=== PATIENT | male | born 1975 | race Caucasian/White ===

== ENCOUNTER → 2018-04-24 | Outpatient (CLI) | payer BC ==
--- NOTE | 2018-04-25 16:25 | CT ---
EXAMINATION TYPE: CT abdomen pelvis wo/w con DATE OF EXAM: 04/24/2018 COMPARISON: None HISTORY: Lower abdominal pain x [address] DLP: 2363 mGycm Automated exposure control for dose reduction was used. TECHNIQUE: Helical acquisition of images was performed from the lung bases through the pelvis. CONTRAST: Performed with Oral Contrast and without and with IV Contrast, patient injected with 100 mL of Isovue 300. FINDINGS: LUNG BASES: No significant abnormality is appreciated. LIVER/GB: Liver shows low attenuation possibly due to hepatic steatosis. Gallbladder is normal.. PANCREAS: No significant abnormality is seen. SPLEEN: Calcified granuloma noted within the spleen. ADRENALS: No significant abnormality is seen. KIDNEYS: Nonobstructive punctate calcification present at the lower pole of the right kidney. FREE AIR: No free air is visualized. RETROPERITONEAL ADENOPATHY: None visualized REPRODUCTIVE ORGANS: No significant abnormality is seen URINARY BLADDER: No significant abnormality is seen. PELVIC ADENOPATHY: None visualized. OSSEOUS STRUCTURES: No significant abnormality is seen. BOWEL: Long segment areas of small bowel narrowing Are noted in the midabdomen, axial images 42 through 36 and axial 67e, there is no evident bowel obst ruction however. The appendix is normal. Sigmoid colon shows wall thickening which is indeterminate, this could be due to lack of distention or muscular hypertrophy, difficult to exclude mucosal mass, c olitis, diverticular change also present. OTHER: Small umbilical hernia contains fat. IMPRESSION: DIFFICULT TO EXCLUDE BOWEL STRICTURE ON THE BASIS OF THIS EXAM, UPPER GI WITH SMALL BOWEL FOLLOW-THRO UGH MAY BE OF BENEFIT. Findings in the sigmoid colon as described, diverticulosis. Old granulomatous disease. Possible hepatic steatosis.
== END | disposition home or self-care (01) ==
LOC: RADCTMAIN 16:21
PROVIDERS: ATTEND Family Medicine
DX: K57.30 Diverticulosis of large intestine without perforation or abscess without bleeding (principal)
CPT/HCPCS: 74178; Q9967

== ENCOUNTER → 2018-06-01 | Outpatient (CLI) | payer BC ==
--- NOTE | 2018-06-01 10:33 | FL ---
Small bowel follow-through HISTORY: Abdominal pain and distention Patient was given barium and serial exams performed over the abdomen. 27 seconds fluoroscopy time, 7 images obtained. There is no obstruction to flow. No fixation of bowel loops noted, there is no fistula formation. No evident bowel distention. Bowel fold pattern is normal. Appendix is not visualized. Terminal ileum sh ows a normal position and appearance. IMPRESSION: No significant abnormality is evident.
== END ==
LOC: RADFLMAIN 07:34
PROVIDERS: ATTEND Surgery
DX: K56.609 Unspecified intestinal obstruction, unspecified as to partial versus complete obstruction (principal)
CPT/HCPCS: 74250

== ENCOUNTER → 2018-09-04 | Day surgery (SDC) | payer BC ==
[~2018-09-04] MED LIST: GLUCAGON 1 MG/ML VIAL IM STA
[2018-09-04 08:53] VITALS: BP 123/85; PULSE 79; RESP 18; TEMP 97.7
--- NOTE | 2018-09-07 11:10 | MR ---
EXAMINATION TYPE: MR Enterography DATE OF EXAM: 09/04/2018 COMPARISON: CT abdomen and pelvis April 24, 2018. Small bowel follow-through June 01, 2018. HISTORY: Abdominal pain CONTRAST: Standard multiplanar, multisequence imaging of the abdomen is performed without and with IV contrast, patient is injected with 10 mL intravenous Gadavist gadolinium contrast. Oral Volumen and Water was given as per enterography protocol. FINDINGS: BOWEL: Stomach shows satisfactory distention without suspicious wall thickening or eccentric mural en hancement. Duodenal sweep shows satisfactory distention without suspicious eccentric wall thickening or enhancement. Jejunal loops in the left abdomen show some areas of nondistention. There is no suspi cious mucosal hyperenhancement or eccentric wall thickening identified. Right-sided ileal loops show less than optimal distention without suspicious eccentric wall thickening or mucosal hyperenhancement . Area of concern on prior CT of a short segment narrowing in the right upper quadrant to midabdomen is redemonstrated without suspicious acute enhancement. Short segment stricture is suspected. No sign ificant proximal dilatation to suggest obstruction related to this is identified. Terminal ileum show similar poor distention without suspicious wall thickening or enhancement. Visualized portion of the colon shows poor distention of the proximal to mid transverse colon without suspicious mural enhancement or eccentric wall thickening. Some poor distention of the mid sigmoid c olon is also identified. OTHER: Visualized lung bases are clear. Visualized portion of liver, both adrenal glands, spleen, and pancreas are unremarkable. Gallbladder is contracted. There is subcentimeter simple appearing cyst u pper pole level right kidney axial image 39. No hydronephrosis is evident bilaterally. No concerning abdominal fluid collection is seen. No suspicious abdominal adenopathy is noted. Visualized osseous s tructures are intact. IMPRESSION: Short segment stricture proximal ileal loops right upper quadrant confirmed. No suspicious proximal d ilatation to suggest significant obstruction. No active small or large bowel disease currently.
== END ==
LOC: RADMRIMAIN 08:12
PROVIDERS: ATTEND Internal Medicine Gastroenterology
DX: K56.699 Other intestinal obstruction unspecified as to partial versus complete obstruction (principal)
CPT/HCPCS: 96372; 72197; 74183; J1610; A9585

== ENCOUNTER 2018-12-08 06:22 | Emergency (ER) | payer BC ==
[2018-12-08 06:37] VITALS: TEMP 97.6
[2018-12-08] MEDS ORDERED: ONDANSETRON 4 MG/2 ML VIAL IVP STA (07:06)
[2018-12-08] MEDS ORDERED: SODIUM CHLORIDE 0.9% 1,000 ML IV STA (07:06)
[2018-12-08] MEDS ORDERED: KETOROLAC 30 MG/ML 1 ML VIAL IVP STA ×2 (07:06→08:09)
--- NOTE | 2018-12-08 07:09 | ED ---
Abdominal Pain HPI - General Chief Complaint: Abdominal Pain Stated Complaint: Kidney stone Time Seen by Provider: 12/08/18 07:00 Source: patient, RN notes reviewed Mode of arrival: ambulatory Limitations: no limitations - History of Present Illness Initial Comments: This is a 43-year-old male with a history of kidney stones in the past who states he had the onset around 5:30 AM this morning of severe sharp right-sided flank pain this seems to radiate around to his right mid abdomen. She had nausea with it he states it's very severe 10/10 somewhat to his previous kidney stone pain. No vomiting he does feel somewhat lightheaded. Nothing makes pain better nothing seems to make it worse. He's had prior to this no fevers chills nausea vomiting sweats abdominal pain dysuria hematuria or trouble with bowel movements. MD Complaint: flank pain - Related Data Home Medications Medication Instructions Recorded Confirmed Dicyclomine [Bentyl] 20 mg PO BID 09/04/18 12/08/18 Pantoprazole Sodium [Protonix] 40 mg PO BID 09/04/18 12/08/18 Cinnamon Bark [Cinnamon] 500 mg PO DAILY 12/08/18 12/08/18 Turmeric Root Extract [Turmeric] 500 mg PO DAILY 12/08/18 12/08/18 Previous Rx's Medication Instructions Recorded Hydrocodone/Acetaminophen [Critz 1 each PO Q6HR PRN #20 tab 12/08/18 5-325] Tamsulosin [Flomax] 0.4 mg PO DAILY #7 cap 12/08/18 Allergies Allergy/AdvReac Type Severity Reaction Status Date / Time No Known Allergies Allergy Verified 12/08/18 08:03 Review of Systems ROS Statement: Those systems with pertinent positive or pertinent negative responses have been documented in the HPI. ROS Other: All systems not noted in ROS Statement are negative. Past Medical History Past Medical History: No Reported History History of Any Multi-Drug Resistant Organisms: None Reported Past Surgical History: Orthopedic Surgery Past Psychological History: No Psychological Hx Reported Smoking Status: Former smoker Past Alcohol Use History: Occasional Past Drug Use History: None Reported General Exam - General Exam Comments Initial Comments: This is a well-developed well-nourished awake alert oriented times 3 male Limitations: no limitations General appearance: alert, anxious, in distress Head exam: Present: atraumatic, normocephalic, normal inspection Eye exam: Present: normal appearance, PERRL, EOMI. Absent: scleral icterus, conjunctival injection, periorbital swelling ENT exam: Present: normal exam, mucous membranes moist Neck exam: Present: normal inspection. Absent: tenderness, meningismus, lymphadenopathy Respiratory exam: Present: normal lung sounds bilaterally. Absent: respiratory distress, wheezes, rales, rhonchi, stridor Cardiovascular Exam: Present: regular rate, normal rhythm, normal heart sounds. Absent: systolic murmur, diastolic murmur, rubs, gallop, clicks GI/Abdominal exam: Present: soft, tenderness (Mild right flank tenderness palpation), normal bowel sounds. Absent: distended, guarding, rebound, rigid Rectal exam: Present: deferred Extremities exam: Present: normal inspection, full ROM, normal capillary refill. Absent: tenderness, pedal edema, joint swelling, calf tenderness Back exam: Present: normal inspection, CVA tenderness (R). Absent: CVA tenderness (L), paraspinal tenderness, vertebral tenderness, rash noted Neurological exam: Present: alert, oriented X3, CN II-XII intact Psychiatric exam: Present: normal affect, anxious Skin exam: Present: warm, dry, intact, pallor. Absent: rash Course Vital Signs 12/08/18 06:35 Temperature 97.6 F Pulse Rate 62 Respiratory 20 Rate Blood Pressure 136/91 O2 Sat by Pulse 96 Oximetry Medical Decision Making - Medical Decision Making Patient is finally get improvement he will be discharged with pain medication and Flomax I did discuss this with the patient and his - Lab Data Result diagrams: 12/08/18 07:05 12/08/18 07:05 Lab Results 12/08/18 12/08/18 12/08/18 Range/Units 06:40 07:05 07:05 WBC 9.5 (3.8-10.6) k/uL RBC 5.05 (4.30-5.90) m/uL Hgb 14.5 (13.0-17.5) gm/dL Hct 42.3 (39.0-53.0) % MCV 83.7 (80.0-100.0) fL MCH 28.8 (25.0-35.0) pg MCHC 34.4 (31.0-37.0) g/dL RDW 13.3 (11.5-15.5) % Plt Count 317 (150-450) k/uL Neutrophils % 59 % Lymphocytes % 29 % Monocytes % 7 % Eosinophils % 2 % Basophils % 0 % Neutrophils # 5.6 (1.3-7.7) k/uL Lymphocytes # 2.7 (1.0-4.8) k/uL Monocytes # 0.7 (0-1.0) k/uL Eosinophils # 0.1 (0-0.7) k/uL Basophils # 0.0 (0-0.2) k/uL Sodium 141 (137-145) mmol/L Potassium 4.2 (3.5-5.1) mmol/L Chloride 105 (98-107) mmol/L Carbon Dioxide 26 (22-30) mmol/L Anion Gap 10 mmol/L BUN 14 (9-20) mg/dL Creatinine 1.03 (0.66-1.25) mg/dL Est GFR (CKD-EPI)AfAm >90 (>60 ml/min/1.73 sqM) Est GFR (CKD-EPI)NonAf 88 (>60 ml/min/1.73 sqM) Glucose 118 H (74-99) mg/dL Calcium 9.7 (8.4-10.2) mg/dL Total Bilirubin 0.7 (0.2-1.3) mg/dL AST 29 (17-59) U/L ALT 68 (21-72) U/L Alkaline Phosphatase 66 (38-126) U/L Total Protein 7.5 (6.3-8.2) g/dL Albumin 4.5 (3.5-5.0) g/dL Amylase 40 (30-110) U/L Lipase 112 (23-300) U/L Urine Color Yellow Urine Appearance Clear (Clear) Urine pH 5.5 (5.0-8.0) Ur Specific [place] 1.028 (1.001-1.035) Urine Protein Trace H (Negative) Urine Glucose (UA) Negative (Negative) Urine Ketones Negative (Negative) Urine Blood Moderate H (Negative) Urine Nitrite Negative (Negative) Urine Bilirubin Negative (Negative) Urine Urobilinogen <2.0 (<2.0) mg/dL Ur Leukocyte Esterase Negative (Negative) Urine RBC 119 H (0-5) /hpf Urine WBC 1 (0-5) /hpf Ur Squamous Epith Cells <1 (0-4) /hpf Urine Mucus Moderate H (None) /hpf - Radiology Data Radiology results: report reviewed (I did review the imaging and report no acute findings), image reviewed Disposition Clinical Impression: Kidney stone on right side, Renal colic on right side, Hematuria Disposition: HOME SELF-CARE Condition: Good Instructions (If sedation given, give patient instructions): Abdominal Pain (ED), Kidney Stones (ED), Renal Colic (ED), Flank Pain (ED) Prescriptions: Tamsulosin [Flomax] 0.4 mg PO DAILY #7 cap Hydrocodone/Acetaminophen [Critz 5-325] 1 each PO Q6HR PRN #20 tab PRN Reason: Pain Is patient prescribed a controlled substance at d/c from ED?: Yes When asked, does pt state using other controlled substances?: No If prescribed controlled substance>3 days was MAPS reviewed?: Prescribed <3 Days If opioid is for acute pain is fill amount 7 days or less?: No If Rx opioid, was Start Talking consent form obtained?: Yes Referrals: Cristi Zayas DO [Primary Care Provider] - 1-2 days
[2018-12-08 07:18] LABS: Appearance,Urine Clear (Clear); Bilirubin,Urine Negative (Negative); Blood,Urine Moderate (Negative); Color,Urine Yellow; Glucose,Urine (UA) Negative (Negative); Ketones,Urine Negative (Negative); Leukocyte Esterase,Urine Negative (Negative); Mucus,Urine Moderate /hpf; Nitrite,Urine Negative (Negative); PH, Urine 5.5 (5.0-8.0); Protein,Urine Trace (Negative); RBC,Urine 119 /hpf (0-5); Specific Gravity,Urine 1.028 (1.001-1.035); Squamous Epithelial Cell,Urine <1 /hpf (0-4); Urobilinogen,Urine <2.0 mg/dL (<2.0); WBC,Urine 1 /hpf (0-5)
[2018-12-08 07:29] LABS: Basophils % (A) 0 %; Eosinophils # (A) 0.1 k/uL (0-0.7); Eosinophils % (A) 2 %; HCT 42.3 % (39.0-53.0); HGB 14.5 gm/dL (13.0-17.5); Lymphocytes # (A) 2.7 k/uL (1.0-4.8); Lymphocytes % (A) 29 %; MCH 28.8 pg (25.0-35.0); MCHC 34.4 g/dL (31.0-37.0); MCV 83.7 fL (80.0-100.0); Mean Platelet Volume 6.4; Monocytes # (A) 0.7 k/uL (0-1.0); Monocytes % (A) 7 %; Neutrophils # (A) 5.6 k/uL (1.3-7.7); Neutrophils % (A) 59 %; Platelet Count 317 k/uL (150-450); RBC 5.05 m/uL (4.30-5.90); RDW 13.3 % (11.5-15.5); WBC 9.5 k/uL (3.8-10.6)
[2018-12-08 07:38] LABS: ALT 68 U/L (21-72); AST 29 U/L (17-59); Albumin 4.5 g/dL (3.5-5.0); Alkaline Phosphatase 66 U/L (38-126); Amylase 40 U/L (30-110); Anion Gap 10 mmol/L; Blood Urea Nitrogen 14 mg/dL (9-20); Calcium 9.7 mg/dL (8.4-10.2); Carbon Dioxide 26 mmol/L (22-30); Chloride 105 mmol/L (98-107); Glucose 118 mg/dL (74-99); Lipase 112 U/L (23-300); Potassium 4.2 mmol/L (3.5-5.1); Sodium 141 mmol/L (137-145); Total Bilirubin 0.7 mg/dL (0.2-1.3); Total Protein 7.5 g/dL (6.3-8.2)
[2018-12-08] MEDS ORDERED: fentaNYL (PF) 50 MCG/ML 2 ML AMP IV STA (07:48)
[2018-12-08] MEDS ORDERED: TAMSULOSIN 0.4 MG CAP.ER.24H PO STA (08:09)
[2018-12-08] MEDS ORDERED: HYDROmorphone 1 MG/ML 1 ML SYRINGE IVP STA (08:10)
--- NOTE | 2018-12-08 08:26 | XR ---
EXAMINATION TYPE: XR KUB DATE OF EXAM: 12/08/2018 8:15 AM CLINICAL HISTORY: Right flank pain. History of nephrolithiasis. TECHNIQUE: Single upright image of the abdomen is obtained. COMPARISON: 06/01/2018. FINDINGS: Scattered gas is seen in nondilated small bowel loops. Gas and fecal material is seen in no ndilated colon. There is no visceromegaly, gross evidence of pneumoperitoneum, or abnormal calcificat ion appreciated. The lung bases are clear and the osseous structures are intact. IMPRESSION: No radiopaque calculi. Mild right hemicolonic fecal burden. Nonobstructive bowel gas augie wolf.
[2018-12-08 10:08] VITALS: BP 109/84; PULSE 77; RESP 18
== END 2018-12-08 10:10 | disposition home or self-care (01) ==
LOC: EC 06:22
DX: N20.0 Calculus of kidney (principal); R42 Dizziness and giddiness; R23.1 Pallor; Z87.891 Personal history of nicotine dependence; Z79.899 Other long term (current) drug therapy
CPT/HCPCS: 36415; 80053; 82150; 83690; 85025; 81001; 74018; 99284; 96374; 96375 ×3; 96376; 96361 ×2; J2405; J3010; J1885; J1170

== ENCOUNTER → 2019-07-23 | Outpatient (CLI) | payer BC ==
--- NOTE | 2019-07-24 12:17 | XR ---
Sacrum and coccyx HISTORY: Sacrococcygeal pain 3 views of the sacrum and coccyx Bone mineralization and alignment are maintained. No fracture or dislocation. Suspect spina bifida oc culta S1. IMPRESSION: No abnormality evident. MRI or bone scan may be of increased sensitivity.
== END | disposition home or self-care (01) ==
LOC: RADXRMAIN 15:31
PROVIDERS: ATTEND Family Medicine
DX: M53.3 Sacrococcygeal disorders, not elsewhere classified (principal)
CPT/HCPCS: 72220

== ENCOUNTER → 2020-11-14 | Outpatient (CLI) | payer BC ==
--- NOTE | 2020-11-14 14:33 | CT ---
EXAMINATION TYPE: CT abdomen pelvis w con DATE OF EXAM: 11/14/2020 COMPARISON: 04/24/2018 HISTORY: 45-year-old male [id number], diverticulitis, Left side abdominal pain TECHNIQUE: Contiguous axial scanning of the abdomen and pelvis following administration of 100 ml Iso suhas 300 IV contrast. Delayed images through the kidneys and coronal/sagittal reconstructions perform ed. CT DLP: 1089.8 mGycm Automated exposure control for dose reduction was used. FINDINGS: Heart normal size without pericardial effusion. Lung bases clear without pleural effusion. Liver borderline in size at 17.2 cm. Slightly low attenuation suggests mild fatty infiltration. John l venous system is patent. No biliary ductal dilatation. Gallbladder, adrenal glands, left kidney, spleen, and pancreas appear within normal limits. Stable 9 mm cortical hypodensity upper pole right kidney too small for accurate CT characterization c ompatible with a small cyst. No dilated small bowel, free fluid, or free air. No mesenteric or retroperitoneal lymphadenopathy. Oral contrast progressed into the splenic flecture. The previously described area of small bowel stricture in the right upper quadrant is not as well dem onstrated on the present exam. Mild circumferential wall thickening along the sigmoid colon likely due to nondistention. Bladder is urine distended. Prostate gland measures 4.1 cm wide. No abnormal fluid collection in the pelvis or pelvic lymphadenopathy. Bones: Mild degenerative change at the hips. A few scattered sclerotic foci compatible with bone rajeev nds such as in the medial anterior left iliac bone and posterior left acetabulum. IMPRESSION: 1. MILD CIRCUMFERENTIAL WALL THICKENING OF THE SIGMOID COLON LIKELY DUE TO NONDISTENTION. CORRELATE T O EXCLUDE A NONSPECIFIC MILD COLITIS. 2. THE PREVIOUSLY DESCRIBED AREA OF SMALL BOWEL STRICTURE IN THE RIGHT UPPER QUADRANT IS NOT WELL DEMONSTRATED ON THE PRESENT EXAM.
== END ==
LOC: RADCTMAIN 11:49
PROVIDERS: ATTEND Family Medicine
DX: K56.699 Other intestinal obstruction unspecified as to partial versus complete obstruction (principal)
CPT/HCPCS: 74177; Q9967

== ENCOUNTER → 2020-12-04 | Outpatient (CLI) | payer BC | END | disposition home or self-care (01) | LOC: LABPAT 10:28 | PROVIDERS: ATTEND Surgery | DX: Z20.822 Contact with and (suspected) exposure to COVID-19 (principal) | CPT/HCPCS: U0003; C9803; U0005 ==

== ENCOUNTER 2020-12-08 09:31 | Day surgery (SDC) | payer BC ==
[2020-12-06 11:26] VITALS: BMI 29.9
[~2020-12-08 09:31] MED LIST changes: -GLUCAGON 1 MG/ML VIAL IM STA; +LACTATED RINGERS 1,000 ML IV SCH
[2020-12-08] MEDS ORDERED: LIDOCAINE 1% (10MG/ML) FOR IV START SQ ONE (09:50)
[2020-12-08 09:54] VITALS: TEMP 97
[2020-12-08] MEDS ORDERED: PROPOFOL 10 MG/ML 20 ML VIAL IV ONE (10:08)
--- NOTE | 2020-12-08 10:25 | P.GSHP ---
History of Present Illness H&P Date: 12/08/20 45-year-old male presents today for screening colonoscopy. He has had recent episodes of diverticulitis. He denies any recent blood in stool. He states he has had a colonoscopy 10 years ago. He has no additional complaints at this time. - Review of Systems All systems: negative Past Medical History Past Medical History: GERD/Reflux Additional Past Medical History / Comment(s): abdominal pain History of Any Multi-Drug Resistant Organisms: MRSA Date of last positivie culture/infection: 2010 MDRO Source:: rt knee Past Surgical History: Orthopedic Surgery Additional Past Surgical History / Comment(s): ankle procedure Past Anesthesia/Blood Transfusion Reactions: No Reported Reaction Smoking Status: Never smoker - Past Family History Mother Family Medical History: No Reported History Father Family Medical History: Cancer Medications and Allergies Home Medications Medication Instructions Recorded Confirmed Type Pantoprazole Sodium [Protonix] 40 mg PO BID 09/04/18 12/08/20 History Allergies Allergy/AdvReac Type Severity Reaction Status Date / Time No Known Allergies Allergy Verified 12/08/20 09:48 Surgical - Exam Osteopathic Statement: *. No significant issues noted on an osteopathic struc tural exam other than those noted in the History and Physical/Consult. Vital Signs Temp Pulse Resp BP Pulse Ox 97.0 F L 108 H 17 122/82 98 12/08/20 09:53 12/08/20 09:53 12/08/20 09:53 12/08/20 09:53 12/08/20 09:53 - General well nourished, no distress - Neck trachea midline - Respiratory normal respiratory effort - Abdomen Abdomen: soft, non tender Assessment and Plan Plan: 45-year-old male presents for a screening colonoscopy. Risks, benefits and alternatives were provided to the patient. He did provide consent prior to attending the endoscopy suite. Further recommendations to be made after procedure.
[2020-12-08 10:27] VITALS: RESP 16
--- NOTE | 2020-12-08 10:28 | P.PCN ---
Date of Procedure: 12/08/20 Preoperative Diagnosis: Screening for colon cancer History of diverticulitis Postoperative Diagnosis: Diverticulosis Procedure(s) Performed: Colonoscopy Anesthesia: MAC Surgeon: Lukas Morejon Pathology: none sent Condition: stable Disposition: same day Indications for Procedure: 45-year-old male presents for screening colonoscopy. Last colonoscopy was 10 years ago. He has had recent episodes of diverticulitis. Denies blood in his stool. Risks, benefits and alternatives were provided to the patient. He did provide consent prior to attending the endoscopy suite. Operative Findings: Diverticulosis Description of Procedure: The patient was brought to the endoscopy suite and placed in left lateral decubitus position and adequate sedation was achieved using conscious sedation. A digital rectal exam was performed and internal hemorrhoids were palpated. An endoscope was then placed in the rectum and advanced to the cecum as identified by landmarks including the appendiceal orifice and the ileocecal valve. The prep was good. The colonoscope was then slowly withdrawn, examining for any mucosal abnormalities. The cecum, ascending, transverse, descending and sigmoid colon were visualized adequately. There were no large neoplastic lesions noted throughout the colon. There were no polyps noted throughout the colon. Small amount of diverticulosis was noted in the sigmoid colon. Retroflexion was performed in the rectum and internal hemorrhoids were visible. Excess air was removed, the colonoscope was withdrawn and the procedure terminated. The patient was then transferred to the recovery unit in stable condition. Repeat c olonoscopy should be performed in 7 years.
[2020-12-08 10:40] VITALS: BP 108/74; PULSE 81
== END 2020-12-08 11:20 | disposition home or self-care (01) ==
LOC: ORWHC2ENDO 09:31
PROVIDERS: ATTEND Surgery
DX: Z12.11 Encounter for screening for malignant neoplasm of colon (principal); K57.30 Diverticulosis of large intestine without perforation or abscess without bleeding; K21.9 Gastro-esophageal reflux disease without esophagitis; K64.8 Other hemorrhoids; Z79.899 Other long term (current) drug therapy; Z80.9 Family history of malignant neoplasm, unspecified; Z86.14 Personal history of Methicillin resistant Staphylococcus aureus infection
CPT/HCPCS: J2704; G0121; 45378